=== PATIENT | male | born 1950 | race Caucasian/White ===

== ENCOUNTER 2019-01-24 07:39 | Outpatient (CLI) | payer BC ==
[2019-01-24 11:58] LABS: Hemoglobin 15.8 g/dL (14.0-18.0); Mean Corpuscular HGB CONC 33.6 g/dL (32.0-36.0); Mean Corpuscular Hemoglobin 31.2 pg (27.0-31.0); Mean Corpuscular Volume 92.8 fL (78.0-98.0); Mean Platelet Volume 6.1 fL (7.4-10.4); Platelet Count 289 thou/uL (130-400); RBC Distribution Width 11.1 % (11.5-14.5); Red Blood Cell (RBC) Count 5.05 mill/uL (4.70-6.10); White Blood Cell (WBC) Count 6.9 thou/uL (4.8-10.8)
[2019-01-24 12:25] LABS: Anion Gap 13 mmol/L (10-20); BUN (Urea Nitrogen) 13 mg/dL (8.4-25.7); Calc. Creatinine Clearance 0 mL/min (70-130); Calcium 10.4 mg/dL (7.8-10.44); Carbon Dioxide 26 mmol/L (23-31); Chloride 96 mmol/L (98-107); Estimated GFR-MDRD 64; Glucose 75 mg/dL (80-115); Potassium 4.3 mmol/L (3.5-5.1); Sodium 131 mmol/L (136-145)
--- NOTE | 2019-01-27 10:08 | EKG ---
Test Reason : Blood Pressure : / mmHG Vent. Rate : 063 BPM Atrial Rate : 063 BPM P-R Int : 146 ms QRS Dur : 088 ms QT Int : 364 ms P-R-T Axes : 037 -04 019 degrees QTc Int : 372 ms Normal sinus rhythm Inferior infarct , age undetermined Possible Anterior infarct , age undetermined Abnormal ECG No previous ECGs available Confirmed by JM HICKS MD ([id number]) on 01/27/2019 10:08:15 AM Referred By: ANGEL Confirmed By:JM HICKS MD
== END 2019-01-24 07:40 | disposition home or self-care (01) ==
LOC: LABBT 07:39
PROVIDERS: ATTEND Neurological Surgery
DX: Z01.818 Encounter for other preprocedural examination (principal); M48.061 Spinal stenosis, lumbar region without neurogenic claudication
CPT/HCPCS: 80048; 85027; 93005; 93010

== ENCOUNTER 2019-02-01 06:34 | Day surgery (SDC) | payer BC ==
[2019-01-24 08:57] VITALS: BMI 27.9
[2019-02-01] MEDS ORDERED: Fentanyl 100 MCG/2 ML VIAL ONE ×3 (06:37→10:27)
[2019-02-01] MEDS ORDERED: Lidocaine 2% Jelly 5 ML TUBE ONE (06:37)
[2019-02-01] MEDS ORDERED: Bupivacaine HCl 0.5%/Epinephrine 1:200,000/PF 30 ml Vial ONE (07:01)
[2019-02-01] MEDS ORDERED: Thrombin 5000 UNITS/5 ML VIAL ONE (07:02)
--- NOTE | 2019-02-01 09:53 | OP ---
DATE OF PROCEDURE: 02/01/2019 [employer] MANAGER: Cong Duncan PA-C INDICATION: Pain. DIAGNOSIS: Lumbar stenosis and neurogenic claudication. ANESTHESIA: General. DESCRIPTION OF PROCEDURE: The patient was brought into the operating room and placed under general anesthesia. He was flipped from the supine to prone position on the operating room table. A linear incision was planned over the L4-L5 segment. After prepping and draping and after an appropriate preoperative pause, the incision was created. The soft tissues were swept away from midline. Self-retaining retractors were placed in the wound for optimal exposure. After confirming the appropriate level with C-arm fluoroscopy, an Adson rongeur as well as Kerrisons and high-speed cutting drill bit were used to perform a laminectomy, which extended from the inferior aspect of L4 and the superior aspect of L5. The laminectomy was extended laterally to encompass the medial aspect of the facet joints until the lateral recesses were decompressed. The wound was irrigated. Hemostasis was maintained throughout. The wound was then closed in anatomic layers and a pressure dressing was applied. There were no known procedural complications. Job ID: [id number]
[2019-02-01] MEDS ORDERED: Tamsulosin HCl 0.4 MG CAP ONE (10:48)
[2019-02-01] MEDS ORDERED: Hydrocodone-Acetamin 15 ML UDCUP ONE (12:05)
== END 2019-02-01 17:20 | disposition home or self-care (01) ==
LOC: SDC 06:34
PROVIDERS: ATTEND Neurological Surgery
PROC: 01NB0ZZ Release Lumbar Nerve, Open Approach (ICD-10-PCS; principal; 2019-02-01)
DX: M48.062 Spinal stenosis, lumbar region with neurogenic claudication (principal); M54.16 Radiculopathy, lumbar region; Z88.5 Allergy status to narcotic agent
CPT/HCPCS: 76000; J0670; J0690; J3010

== ENCOUNTER 2020-02-01 09:00 | Outpatient (CLI) | payer BC ==
--- NOTE | 2020-02-01 10:32 | MRI ---
Exam: MRI cervical spine without contrast HISTORY: Cervical myelopathy.. COMPARISON: None FINDINGS: Appropriate T1 marrow signal intensity of the cervical vertebra. Cervical spine vertebral body heigh t is maintained. No fracture. There are type I and type II Modic changes at the C5-C6 disc space. Visualized brain parenchyma, cervicomedullary junction, cervical cord and the upper thoracic cord hav e a normal size and signal intensity. There are osteophytes along the anterior disc space at C4-C5 and C5-C6. Spondylolisthesis: 3.9 mm of anterolisthesis of C7 upon T1. C2-C3: Adequate disc space height. No significant central canal stenosis. Patent right neural foramen . Severe left foraminal narrowing due to uncovertebral and facet hypertrophy. C3-C4: Adequate disc hydration. No significant central canal stenosis. Moderate right and moderate to severe left neural foraminal narrowing due to uncovertebral and left facet hypertrophy. C4-C5: Moderate to severe loss of disc space height. Broad-based disc osteophyte complex. Mild centra l canal stenosis. Moderate bilateral neural foraminal narrowing due to uncovertebral and right facet hypertrophy. C5-C6: Severe loss of disc space height. Broad-based disc osteophyte complex with central superior di sc migration. Moderate central canal stenosis. Moderate to severe right and left neural foraminal narrowing due to uncovertebral hypertrophy. C6-C7: Severe loss of disc space height. Broad-based disc osteophyte complex. Mild to moderate centra l canal stenosis. Moderate to severe bilateral neural foraminal narrowing. C7-T1: . Moderate loss of disc space height. Broad-based disc bulge abuts the thecal sac. Mild centra l canal stenosis. Right neural foramen is mildly narrowed. Moderate left neural foraminal narrowing. IMPRESSION: Multilevel degenerative changes of the cervical spine as detailed above. Transcribed Date/Time: 02/01/2020 11:06 AM
--- NOTE | 2020-02-01 11:04 | MRI ---
Exam: Brain MRI with and without contrast HISTORY: Lumbar radiculopathy. Balance problems for several months. COMPARISON: None. FINDINGS: Appropriate T1 marrow signal intensity of the lumbar vertebra. Lumbar spine vertebral body heights ar e maintained. There is no fracture. There are type I and type II Modic changes at L3-L4. No significant STIR hyperintensity to suggest ligamentous injury or vertebral body edema. Appropriate signal intensity of the visualized paraspinal muscles and solid organs. Conus medullaris terminates at the inferior aspect of L1. Postcontrast images do not demonstrate any abnormal enhancement of the thecal sac, cauda equina or co nus medullaris. No abnormal enhancement of the vertebral bodies. Spondylolisthesis: 3.8 mm of anterolisthesis of L4 upon L5. T12-L1: No significant central canal stenosis or significant neural foraminal narrowing. L1-L2: Adequate disc hydration. No significant central canal stenosis or significant neural foraminal narrowing. L2-L3: Minimal disc desiccation. No significant loss of disc space height. No significant central can al stenosis. Patent bilateral neural foramina. L3-L4: Minimal disc desiccation. Mild loss of disc space height. Broad-based disc bulge, ligamentum f lavum thickening and facet hypertrophy result in mild central canal stenosis. There is contact upon both traversing L4 nerve roots without obscuration. Mild bilateral neural foraminal narrowing. L4-L5: Disc desiccation with moderate loss of disc space height. There is a posterior laminectomy def ect. Enhancing scar tissue at the operative site. Broad-based disc bulge abuts the thecal sac. There is facet hypertrophy. Moderate central canal stenosis. Moderate to severe bilateral neural fora tony narrowing predominantly due to disc material. L5-S1: Disc desiccation without significant loss of disc space height. Broad-based disc bulge, ligame ntum flavum thickening and facet hypertrophy result in moderate to severe central canal stenosis. There is mass effect and mild obscuration of the traversing right S1 nerve root. Mass effect and part ial obscuration of the traversing left S1 nerve root. There is fluid in both facet joints. Mild right and mild to moderate left neural foraminal narrowing. IMPRESSION: 1. Grade 1 anterolisthesis of L4 upon L5. Posterior laminectomy defect with enhancing scar tissue at L4-L5. Moderate central canal stenosis. Moderate to severe bilateral neural foraminal narrowing. 2. Left greater than right mass effect upon the traversing S1 nerve root. 3. Moderate to severe central canal stenosis at L5-S1. Mild right and mild to moderate left neural fo raminal narrowing at L5-S1. Transcribed Date/Time: 02/01/2020 11:12 AM
[2020-02-01] MEDS ORDERED: Magnevist 469MG/ML 20 ML VIAL ONE (14:54)
== END 2020-02-01 09:01 | disposition home or self-care (01) ==
LOC: BICMRI 09:00
PROVIDERS: ATTEND Neurological Surgery
DX: M47.12 Other spondylosis with myelopathy, cervical region (principal); M54.16 Radiculopathy, lumbar region; G95.9 Disease of spinal cord, unspecified; M43.16 Spondylolisthesis, lumbar region; M48.061 Spinal stenosis, lumbar region without neurogenic claudication; M53.3 Sacrococcygeal disorders, not elsewhere classified; M48.07 Spinal stenosis, lumbosacral region; Z98.890 Other specified postprocedural states
CPT/HCPCS: 72141; 72158

== ENCOUNTER 2022-04-21 10:19 | Outpatient (CLI) | payer BC ==
[2022-04-21 12:25] LABS: #Basophils 0.1 10x3/uL (0.0-0.2); #Eosinphils 0.7 10x3/uL (0.0-0.5); #Monocytes 0.8 10x3/uL (0.0-1.1); #Neutrophils 3.5 10x3/uL (1.5-8.4); %Basophils 1.2 % (0.0-2.0); %Eosinophils 11.5 % (0.0-6.0); %Lymphocytes 20.9 % (18.0-47.0); %Monocytes 12.1 % (0.0-10.0); Mean Corpuscular HGB CONC 35.4 g/dL (32.0-36.0); Mean Corpuscular Hemoglobin 31.6 pg (27.0-33.0); Mean Corpuscular Volume 89.5 fl (81.2-95.1); Mean Platelet Volume 8.3 fl (7.4-10.4); Platelet Count 271 10x3/uL (150-450); RBC Distribution Width 12.1 % (11.5-14.5); Red Blood Cell (RBC) Count 4.74 10x6/uL (4.32-5.72); White Blood Cell (WBC) Count 6.5 10x3/uL (3.5-10.5)
[2022-04-21 12:34] LABS: INR-International Normal Ratio 0.9; Prothrombin Time 10.3 sec (9.5-12.1)
[2022-04-21 12:37] LABS: Anion Gap 16 mmol/L (10-20); BUN (Urea Nitrogen) 14 mg/dL (8.4-25.7); Calc. Creatinine Clearance 0 mL/min (70-130); Calcium 9.7 mg/dL (7.8-10.44); Carbon Dioxide 25 mmol/L (23-31); Chloride 98 mmol/L (98-107); Estimated GFR 67; Glucose 113 mg/dL (80-115); Sodium 134 mmol/L (136-145)
== END 2022-04-21 10:20 | disposition home or self-care (01) ==
LOC: LABBT 10:19
PROVIDERS: ATTEND Orthopaedic Surgery
DX: Z01.818 Encounter for other preprocedural examination (principal); M19.012 Primary osteoarthritis, left shoulder
CPT/HCPCS: 80048; 85025; 85610; 93005; 93010

== ENCOUNTER 2022-04-23 07:23 | Observation (INO) | payer BC ==
[2022-04-22 10:17] VITALS: BMI 27.1
[2022-04-23] MEDS ORDERED: Tranexamic Acid 1,000 MG/10 ML VIAL ONE (07:41)
[2022-04-23] MEDS ORDERED: Sodium Chloride 0.9% 100 ML ONE ×2 (07:41→09:23)
[2022-04-23] MEDS ORDERED: Vancomycin (BATCH) 1.5 GRAM/300 ML BAG ONE (07:41)
[2022-04-23] MEDS ORDERED: Midazolam HCl 2 mg/2 ml Vial ONE (08:28)
[2022-04-23] MEDS ORDERED: Fentanyl 100 MCG/2 ML VIAL IV PRN (08:47)
[2022-04-23] MEDS ORDERED: Ondansetron PF 4 MG/2 ML Vial IVP PRN (09:00)
[2022-04-23] MEDS ORDERED: HYDROcodone/Acetaminophen 10/325 mg Tablet PO PRN ×2 (09:00)
[2022-04-23] MEDS ORDERED: Ropivacaine 0.2% 550 ML 550 ML NERVE BLCK SCH (09:00)
[2022-04-23] MEDS ORDERED: Zolpidem Tartrate 5 MG TAB PO PRN (09:00)
[2022-04-23] MEDS ORDERED: Promethazine HCl 25 MG/ML VIAL IM PRN (09:00)
[2022-04-23] MEDS ORDERED: traMADol HCl 50 MG TAB PO PRN ×2 (09:00)
[2022-04-23] MEDS ORDERED: CEFAZOLIN 2 GM VIAL ONE (09:23)
[2022-04-23] MEDS ORDERED: fentaNYL PF 100 MCG/2 ML SYRINGE ONE ×3 (09:40→13:49)
[2022-04-23] MEDS ORDERED: Dexamethasone 20 MG/5 ML VIAL ONE (09:49)
[2022-04-23] MEDS ORDERED: Lidocaine 1% PF 5 ML VIAL ONE (09:49)
[2022-04-23] MEDS ORDERED: Ondansetron PF 4 MG/2 ML Vial ONE (09:49)
[2022-04-23] MEDS ORDERED: ePHEDrine 50 MG/ML VIAL ONE (09:49)
[2022-04-23] MEDS ORDERED: PROPOFOL 200 MG/20 ML VIAL ONE (09:49)
[2022-04-23] MEDS ORDERED: NEOSTIGMINE 3 MG/3 ML SYR 3 MG/3 ML SYRINGE ONE (09:49)
[2022-04-23] MEDS ORDERED: Rocuronium Bromide 10 MG/ML (10ML VIAL) ONE (09:49)
[2022-04-23] MEDS ORDERED: Glycopyrrolate 0.2 MG/ML 5 ML SYRINGE ONE (09:49)
[2022-04-23] MEDS ORDERED: PHENYLEPHRINE-NS 100 MCG/ML 10 ML SYRINGE ONE (09:49)
[2022-04-23] MEDS ORDERED: Phenylephrine 10 MG/ML VIAL ONE (10:31)
[2022-04-23] MEDS ORDERED: diphenhydrAMINE 50 MG CAP PO PRN (13:00)
[2022-04-23] MEDS ORDERED: Methocarbamol 1 GM/10 ML VIAL SLOW IVP PRN (13:00)
[2022-04-23] MEDS ORDERED: Acetaminophen 325 MG TAB PO PRN (13:00)
[2022-04-23] MEDS ORDERED: Methocarbamol 500 MG TAB PO PRN (13:00)
[2022-04-23] MEDS ORDERED: Bisacodyl 10 MG SUPP PR PRN (13:00)
[2022-04-23] MEDS ORDERED: Milk Of Magnesia 30 ML UDCUP PO PRN (13:00)
[2022-04-23] MEDS ORDERED: Fluticasone Propionate Nasal Spray 16 gm Bottle NASAL PRN (13:19)
[2022-04-23] MEDS ORDERED: Bupivacaine PF 0.5% 30 ML VIAL ONE (14:18)
[2022-04-23 16:03] LABS: SARS-CoV-2 NAA Rapid Test Not Detected (NotDetected)
[2022-04-23] MEDS: Ketorolac Tromethamine 30 MG/ML VIAL IVP SCH ×3 (16:09→23:53)
[2022-04-23] MEDS: Lactated Ringer's 1,000 ML IV SCH (16:10)
[2022-04-23] MEDS: metFORMIN 500 MG TAB PO SCH (17:52)
[2022-04-23] MEDS: CEFAZOLIN 2 GM in Sodium Chloride 0.9% 100 ML IVPB SCH (17:53)
[2022-04-23] MEDS: Metoprolol Tartrate 50 MG TAB PO SCH (20:23)
[2022-04-23] MEDS: Famotidine 20 MG TAB PO SCH (20:23)
[2022-04-23] MEDS ORDERED: Vancomycin 1.5 GRAM/300 ML BAG 1.5 GM in Premix Bag 1 BAG IVPB SCH (22:00)
[2022-04-24] MEDS: CEFAZOLIN 2 GM in Sodium Chloride 0.9% 100 ML IVPB SCH (02:44)
[2022-04-24 06:01] LABS: #Eosinphils 0.1 thou/uL (0.0-0.7); #Lymphocytes 1.1 thou/uL (1.20-3.40); #Monocytes 1.3 thou/uL (0.11-0.59); #Neutrophils 7.4 thou/uL (1.40-6.50); %Basophils 0.2 % (0.0-1.0); %Eosinophils 0.7 % (0.0-10.0); %Lymphocytes 11.3 % (21.0-51.0); %Monocytes 12.7 % (0.0-10.0); %Neutrophils 75.1 % (42.0-75.0); Hemoglobin 12.6 g/dL (14.0-18.0); Mean Corpuscular HGB CONC 33.3 g/dL (32.0-36.0); Mean Corpuscular Hemoglobin 31.3 pg (27.0-31.0); Platelet Count 228 10x3/uL (130-400); RBC Distribution Width 11.2 % (11.5-14.5); Red Blood Cell (RBC) Count 4.03 mill/uL (4.70-6.10); White Blood Cell (WBC) Count 9.8 10x3/uL (4.8-10.8)
[2022-04-24 06:20] LABS: Anion Gap 13 mmol/L (10-20); BUN (Urea Nitrogen) 16 mg/dL (8.4-25.7); Calc. Creatinine Clearance 82 mL/min (70-130); Calcium 8.7 mg/dL (7.8-10.44); Carbon Dioxide 20 mmol/L (23-31); Chloride 96 mmol/L (98-107); Estimated GFR 79; Glucose 157 mg/dL (80-115); Potassium 4.7 mmol/L (3.5-5.1); Sodium 124 mmol/L (136-145)
[2022-04-24] MEDS: Ketorolac Tromethamine 30 MG/ML VIAL IVP SCH (06:33)
[2022-04-24] MEDS: Lactated Ringer's 1,000 ML IV SCH (06:35)
[2022-04-24] MEDS: Famotidine 20 MG TAB PO SCH (08:08)
[2022-04-24] MEDS: metFORMIN 500 MG TAB PO SCH (08:08)
[2022-04-24] MEDS: Metoprolol Tartrate 50 MG TAB PO SCH (08:08)
[2022-04-24] MEDS ORDERED: Aspirin 81 mg Enteric Coated Tablet PO SCH (09:00)
[2022-04-24] MEDS ORDERED: Amlodipine 5 MG TAB PO SCH (09:00)
[2022-04-24] MEDS ORDERED: Lisinopril 20 MG TAB PO SCH (09:00)
[2022-04-24] MEDS ORDERED: Loratadine 10 MG TAB PO SCH (09:00)
[2022-04-24] MEDS ORDERED: TESTOSTERONE TD SCH (09:00)
[2022-04-24 12:46] VITALS: BP 159/91; TEMP 97.4
== END 2022-04-24 14:12 | disposition home or self-care (01) ==
LOC: SDC 07:23 → SURG A 13:00
PROVIDERS: ADMIT Orthopaedic Surgery; ATTEND Orthopaedic Surgery
PROC: 0RRK0JZ Replacement of Left Shoulder Joint with Synthetic Substitute, Open Approach (ICD-10-PCS; principal; 2022-04-23)
DX: M19.012 Primary osteoarthritis, left shoulder (principal); M67.912 Unspecified disorder of synovium and tendon, left shoulder; M75.112 Incomplete rotator cuff tear or rupture of left shoulder, not specified as traumatic; M24.012 Loose body in left shoulder; I10 Essential (primary) hypertension; E78.5 Hyperlipidemia, unspecified; E11.9 Type 2 diabetes mellitus without complications; Z79.82 Long term (current) use of aspirin; Z79.84 Long term (current) use of oral hypoglycemic drugs; Z79.899 Other long term (current) drug therapy; Z88.5 Allergy status to narcotic agent; Z20.822 Contact with and (suspected) exposure to COVID-19
CPT/HCPCS: 36415; 80048; 85025; 96374; 96375; 96376; A4306; C1713; C1776; G0378; J1100; J1885; J2250; J2370; J2405; J2704; J2795; J3370; J3490; S0020; U0002